=== PATIENT | female | born 1940 | race Two or more races ===

== ENCOUNTER 2016-07-15 12:56 | Inpatient (IN) | payer MEDICARE, OTHER ==
[~2016-07-15] VITALS: Ht 149.9 cm; Wt 57.9 kg
[2016-07-15] VITALS (17 sets, daily range): BP systolic 80–120; BP diastolic 39–70
[2016-07-15] MEDS: SODIUM CHLORIDE 0.9% 1,000 ML IV SCH ×3 (01:00→20:36)
[~2016-07-15 12:56] MED LIST: CLOP75TA28 PO; DOPamine 1600MCG/ML 400MG/250ML PREMIX BAG IV ONE; GLY5T PO; LOSA25TA9 PO; METF-489 PO; PANT40T PO; SIMV80TA73 PO; SODIUM BICARBONATE 8.4% INJ 50ML SYRINGE IV ONE; TIMO0.5S3 EACHEYE; [UNRECOGNIZED DRUG - CODE] XX
[2016-07-15] MEDS ORDERED: DOPamine 1600MCG/ML 250 ML IV ONE (13:15)
[2016-07-15] MEDS ORDERED: SODIUM BICARBONATE 8.4 % INJ 50ML VIAL IV ONE ×3 (13:15→14:30)
[2016-07-15] MEDS ORDERED: SODIUM BICARBONATE 8.4% INJ 50ML SYRINGE ONE (13:17)
[2016-07-15] MEDS ORDERED: NOREPINEPHRINE BITARTRATE 250 ML IV ONE (13:32)
[2016-07-15 13:37] LABS: Basophils # (auto) 0 uL; Basophils % (auto) 0.4 % (0.0-2.0); DEFINITIVE VIEW TRANSMISSION; Eosinophils # (auto) 0.1 uL; Eosinophils % (auto) 0.9 % (0.0-7.0); Hematocrit 24.6 % (36.0-46.0); Lymphocytes # (auto) 2.5 uL; Lymphocytes % (auto) 35.5 % (10.0-50.0); Mean Corpuscular Hemoglobin 23.8 pg (28.0-32.0); Mean Corpuscular Volume 84.9 fL (80.0-100.0); Mean Platelet Volume 8.9 fL (7.4-10.4); Monocytes # (auto) 0.5 uL; Monocytes % (auto) 7.1 % (0.0-12.0); Neutrophils # (auto) 3.9 uL; Neutrophils % (auto) 56.1 % (37.0-80.0); Nucleated Red Blood Cells % 2.4 %; Platelet Count (auto) 328 10^3/uL (140-450); SUSPECT VIEW TRANSMISSION; White Blood Cell 6.9 10^3/uL (4.4-10.8)
[2016-07-15] MEDS: NOREPINEPHRINE BITARTRATE 250 ML IV SCH (13:40)
[2016-07-15] MEDS: DOPamine 1600MCG/ML 250 ML IV SCH (13:40)
[2016-07-15 13:58] LABS: Hemoglobin 6.9 g/dL (12.2-16.2); Red Cell Distribution Width 20.9 % (11.6-16.0)
[2016-07-15] MEDS ORDERED: SODIUM CHLORIDE 0.9% 1,000 ML IV ONE (14:00)
[2016-07-15 14:08] LABS: Albumin 2.4 g/dL (3.4-5.0); BUN/Creatinine Ratio 13.8; Bilirubin, Total 0.3 mg/dL (0.2-1.0); Calcium 8.1 mg/dL (8.5-10.1); Potassium 5.3 mmol/L (3.5-5.1); Total Protein 6.5 g/dL (6.4-8.2)
[2016-07-15 14:09] LABS: INR 1.06 (0.9-1.15); Partial Thromboplastin Time 44.3 sec (22.64-33.71); Prothrombin Time 11.5 sec (9.37-12.3)
[2016-07-15] MEDS ORDERED: InsuLIN R (HUMAN) 100 UNITS in SODIUM CHL 0.9% 99 ML IV SCH ×2 (14:17→16:30)
[2016-07-15] MEDS ORDERED: DEXTROSE (50%) 50ML SYRG IV PRN ×2 (14:30→16:15)
[2016-07-15] MEDS ORDERED: InsuLIN REG 1unit/0.01ml Soln (100units/ml) IV ONE (14:30)
[2016-07-15 14:56] LABS: Urine Bilirubin Negative (Negative); Urine Blood 1+ /uL (Negative); Urine Color Straw (Yellow); Urine Glucose 4+ mg/dL (Normal); Urine Ketone Negative (Negative); Urine Nitrite Negative (Negative); Urine RBC 3 /hpf (0 - 4); Urine Squamous Epithelial Cell FEW /hpf (<5); Urine Urobilinogen Normal (Negative); Urine pH 6.5 (5.0-8.0)
[2016-07-15] MEDS ORDERED: DOPamine 1600MCG/ML 250 ML IV SCH (15:01)
[2016-07-15] MEDS: ACCU-CHEK COMFORT CURVE STRIP VI SCH ×9 (15:11→23:00)
[2016-07-15] MEDS ORDERED: cefTRIAXone 1GM/50ML D5W 50 ML IV ONE ×2 (15:45→16:30)
[2016-07-15] MEDS ORDERED: LORazepam 2MG/ML-1ML VIAL IV PRN (16:15)
[2016-07-15] MEDS ORDERED: NITROGLYCERIN 0.4 MG SL TAB SL PRN (16:15)
[2016-07-15] MEDS ORDERED: PROCHLORPERAZINE EDISYLATE 5 MG/ML 2ML VIAL IV PRN (16:15)
[2016-07-15] MEDS ORDERED: ALBUTEROL SULF 2.5 MG/0.5ML(0.5%) NEB SOLN NEB PRN (16:15)
[2016-07-15] MEDS ORDERED: HYDROmorphone HCL 2 MG/ML VL IV PRN (16:15)
[2016-07-15] MEDS ORDERED: PANTOPRAZOLE SODIUM 40 MG/10 ML VIAL IV ONE (16:30)
[2016-07-15 16:32] LABS: Lactic Acid w/Reflex 13.9 mmol/L (0.4-2.0)
[2016-07-15 16:34] LABS: REFLEX LACTIC ACID YES OR NO YES
[2016-07-15 17:32] LABS: BUN/Creatinine Ratio 16.4; Calcium 7.8 mg/dL (8.5-10.1); Potassium 4.7 mmol/L (3.5-5.1)
[2016-07-15 17:43] LABS: Anisocytosis Moderate; Hypochromia Moderate; Ovalocytes FEW; Platelet Estimate Adequate
[2016-07-15 17:44] LABS: Tear Drop Cells FEW
[2016-07-15 17:46] LABS: Burr Cells FEW; Large Platelets FEW
[2016-07-15] MEDS ORDERED: SODIUM CHLORIDE 0.9% 1,000 ML IV SCH (20:09)
[2016-07-16] VITALS (125 sets, daily range): BP systolic 73–150; BP diastolic 29–81
[2016-07-16] MEDS: ALBUTEROL SULF 2.5 MG/0.5ML(0.5%) NEB SOLN NEB SCH ×4 (00:40→18:39)
[2016-07-16] MEDS: IPRATROPIUM BROM 0.5 MG/2.5ML INH SOL NEB SCH ×4 (00:40→18:39)
[2016-07-16 00:57] LABS: Hematocrit 40.9 % (36.0-46.0); Hemoglobin 12.6 g/dL (12.2-16.2)
[2016-07-16 01:12] LABS: Partial Thromboplastin Time 25.6 sec (22.64-33.71)
[2016-07-16] MEDS: ACCU-CHEK COMFORT CURVE STRIP VI SCH ×15 (01:17→22:12)
[2016-07-16 01:20] LABS: INR 1.21 (0.9-1.15); Prothrombin Time 13.1 sec (9.37-12.3)
[2016-07-16 01:36] LABS: Albumin 2.6 g/dL (3.4-5.0); BUN/Creatinine Ratio 19.8; Bilirubin, Total 0.5 mg/dL (0.2-1.0); Calcium 7.3 mg/dL (8.5-10.1); Magnesium 2.4 mg/dL (1.6-2.6); Total Protein 7.1 g/dL (6.4-8.2)
[2016-07-16 02:02] LABS: Phosphorus 0.7 mg/dL (2.5-4.90); Potassium 2.7 mmol/L (3.5-5.1)
[2016-07-16 02:45] LABS: Hemoglobin 13.2 g/dL (12.2-16.2)
[2016-07-16 02:52] LABS: BUN/Creatinine Ratio 19.1; Calcium 7.5 mg/dL (8.5-10.1); Magnesium 2.3 mg/dL (1.6-2.6)
[2016-07-16 02:53] LABS: Phosphorus 0.6 mg/dL (2.5-4.90)
[2016-07-16 02:54] LABS: Potassium 2.4 mmol/L (3.5-5.1)
[2016-07-16] MEDS: NOREPINEPHRINE BITARTRATE 250 ML IV SCH ×4 (03:16→19:20)
[2016-07-16] MEDS ORDERED: SODIUM PHOSPHATES IV ONE (04:30)
[2016-07-16] MEDS ORDERED: SODIUM CHL 0.9% IV ONE (04:30)
[2016-07-16] MEDS: POTASSIUM CHL 20MEQ/100ML 100 ML IV SCH ×3 (04:40→08:31)
[2016-07-16] MEDS: SODIUM CHLORIDE 0.9% 1,000 ML IV SCH (04:49)
[2016-07-16 06:34] LABS: Partial Thromboplastin Time 25.2 sec (22.64-33.71)
[2016-07-16 06:41] LABS: INR 1.26 (0.9-1.15); Prothrombin Time 13.6 sec (9.37-12.3)
[2016-07-16 06:45] LABS: DEFINITIVE VIEW TRANSMISSION; Hematocrit 41.5 % (36.0-46.0); Hemoglobin 13.1 g/dL (12.2-16.2); Mean Corpuscular Hemoglobin 25.8 pg (28.0-32.0); Mean Corpuscular Hgb Conc. 31.5 g/dL (32.0-36.0); Mean Corpuscular Volume 81.7 fL (80.0-100.0); Mean Platelet Volume 7.6 fL (7.4-10.4); Platelet Count (auto) 295 10^3/uL (140-450); Red Cell Distribution Width 18.3 % (11.6-16.0); SUSPECT VIEW TRANSMISSION; White Blood Cell 14.9 10^3/uL (4.4-10.8)
[2016-07-16 06:46] LABS: Myelocytes % 0; Promyelocytes % 0; Reactive Lymphocytes 0
[2016-07-16 06:56] LABS: Hypersegmented Neutrophils Present; Metamyelocytes % 1; Platelet Estimate Adequate
[2016-07-16 06:57] LABS: Anisocytosis Moderate
[2016-07-16 06:58] LABS: Albumin 2.5 g/dL (3.4-5.0); BUN/Creatinine Ratio 20.3; Bilirubin, Total 0.5 mg/dL (0.2-1.0); Calcium 7.4 mg/dL (8.5-10.1); Hypochromia Slight; Magnesium 2.2 mg/dL (1.6-2.6); Ovalocytes FEW; Phosphorus 2.4 mg/dL (2.5-4.90); Total Protein 6.8 g/dL (6.4-8.2)
[2016-07-16 07:06] LABS: Potassium 2.8 mmol/L (3.5-5.1)
[2016-07-16] MEDS: cefTRIAXone 1GM/50ML D5W 50 ML IV SCH (09:51)
[2016-07-16] MEDS: PANTOPRAZOLE SODIUM 40 MG/10 ML VIAL IV SCH (09:51)
[2016-07-16] MEDS: AZITHROMYCIN 500MG/D5W 250ML 250 ML IV SCH (10:32)
[2016-07-16] MEDS ORDERED: ISOS1TAB37 PO (10:59)
[2016-07-16] MEDS ORDERED: TIMO0.5S3 EACHEYE (10:59)
[2016-07-16] MEDS ORDERED: FELO5TAB PO (10:59)
[2016-07-16] MEDS ORDERED: HYDR2TAB27 PO (10:59)
[2016-07-16] MEDS ORDERED: PERCOT PO (10:59)
[2016-07-16] MEDS ORDERED: LEVOPOW43 XX (10:59)
[2016-07-16] MEDS ORDERED: ONDA4TAB5 PO (10:59)
[2016-07-16] MEDS ORDERED: DOCU-94 PO (10:59)
[2016-07-16] MEDS ORDERED: PRO10T PO (10:59)
[2016-07-16] MEDS ORDERED: METF-489 PO ×2 (10:59)
[2016-07-16] MEDS ORDERED: NITR0.4S29 SL (10:59)
[2016-07-16] MEDS ORDERED: GLIM2TAB33 PO (10:59)
[2016-07-16] MEDS ORDERED: LOPE2TAB73 PO (10:59)
[2016-07-16] MEDS: PROPOFOL 100 ML IV SCH (11:01)
[2016-07-16] MEDS: DOPamine 1600MCG/ML 250 ML IV SCH (11:02)
[2016-07-16] MEDS: MIDAZOLAM DRIP 100 mg/100mL NS 100 ML IV SCH (11:02)
[2016-07-16] MEDS ORDERED: DEXTROSE (50%) 50ML SYRG IV PRN (12:00)
[2016-07-16] MEDS ORDERED: INSULIN DETEMIR(LEVEMIR) 1unit/0.01ml Soln (100units/ml) SC ONE (12:00)
[2016-07-16] MEDS: ENOXAPARIN SOD 30 MG/0.3 ML SYRINGE SC SCH (12:24)
[2016-07-16 13:09] LABS: Albumin 2.2 g/dL (3.4-5.0); Bilirubin, Total 0.4 mg/dL (0.2-1.0); Calcium 7.1 mg/dL (8.5-10.1); Total Protein 6.5 g/dL (6.4-8.2)
[2016-07-16 13:13] LABS: Potassium 2.9 mmol/L (3.5-5.1)
[2016-07-16] MEDS ORDERED: POTASSIUM CHLORIDE 40 MEQ, LIDOCAINE 1% (LOCAL ANESTH.) 4 ML in SODIUM CHL 0.9% 250 ML IV ONE (13:30)
[2016-07-16] MEDS ORDERED: POTASSIUM CHL 10% (20 MEQ/15ML) ORAL SOLN GT ONE ×2 (13:30→15:00)
[2016-07-16] MEDS: FREE WATER GT SCH ×3 (13:36→22:12)
[2016-07-16] MEDS: InsuLIN REG 1unit/0.01ml Soln (100units/ml) SC SCH ×3 (14:03→22:12)
[2016-07-16 20:49] LABS: BUN/Creatinine Ratio 19.3; Calcium 7.4 mg/dL (8.5-10.1); Potassium 3.5 mmol/L (3.5-5.1)
[2016-07-16] MEDS ORDERED: POTASSIUM CHL 10% (20 MEQ/15ML) ORAL SOLN GT SCH (22:00)
[2016-07-16] MEDS: SOD CHL 0.45% 1,000 ML IV SCH (22:49)
[2016-07-16] MEDS ORDERED: VASOPRESSIN 20 UNIT/ML ONE (22:50)
[2016-07-16] MEDS: VASOPRESSIN 50 UNITS in SODIUM CHL 0.9% 247.5 ML IV SCH (23:07)
[2016-07-17] VITALS (103 sets, daily range): BP systolic 69–148; BP diastolic 42–80
[2016-07-17] MEDS: IPRATROPIUM BROM 0.5 MG/2.5ML INH SOL NEB SCH ×4 (00:04→19:23)
[2016-07-17] MEDS: ALBUTEROL SULF 2.5 MG/0.5ML(0.5%) NEB SOLN NEB SCH ×4 (00:04→19:23)
[2016-07-17] MEDS: MIDAZOLAM DRIP 100 mg/100mL NS 100 ML IV SCH (00:08)
[2016-07-17] MEDS: PROPOFOL 100 ML IV SCH (00:08)
[2016-07-17 00:58] LABS: Albumin 2.1 g/dL (3.4-5.0); Calcium 6.8 mg/dL (8.5-10.1); Potassium 4.3 mmol/L (3.5-5.1)
[2016-07-17 01:00] LABS: BUN/Creatinine Ratio 17.9
[2016-07-17 01:03] LABS: Bilirubin, Total 0.3 mg/dL (0.2-1.0)
[2016-07-17] MEDS: FREE WATER GT SCH ×6 (02:00→21:52)
[2016-07-17] MEDS: InsuLIN REG 1unit/0.01ml Soln (100units/ml) SC SCH ×6 (02:00→21:53)
[2016-07-17] MEDS: ACCU-CHEK COMFORT CURVE STRIP VI SCH ×6 (02:03→21:52)
[2016-07-17] MEDS: SOD CHL 0.45% 1,000 ML IV SCH (04:00)
[2016-07-17] MEDS: NOREPINEPHRINE BITARTRATE 250 ML IV SCH ×6 (04:51→23:33)
[2016-07-17] MEDS: DOPamine 1600MCG/ML 250 ML IV SCH (05:16)
[2016-07-17 06:19] LABS: DEFINITIVE VIEW TRANSMISSION; Hemoglobin 11.5 g/dL (12.2-16.2); Mean Corpuscular Hemoglobin 25.8 pg (28.0-32.0); Mean Corpuscular Hgb Conc. 31.1 g/dL (32.0-36.0); Mean Platelet Volume 8.4 fL (7.4-10.4); Platelet Count (auto) 194 10^3/uL (140-450); Red Cell Distribution Width 19.4 % (11.6-16.0); SUSPECT VIEW TRANSMISSION
[2016-07-17 06:38] LABS: Metamyelocytes % 0; Myelocytes % 0; Promyelocytes % 0; Reactive Lymphocytes 0
[2016-07-17 06:43] LABS: BUN/Creatinine Ratio 19.1; Bilirubin, Total 0.3 mg/dL (0.2-1.0); Calcium 6.5 mg/dL (8.5-10.1); Magnesium 1.8 mg/dL (1.6-2.6); Potassium 4.7 mmol/L (3.5-5.1); Total Protein 6.1 g/dL (6.4-8.2)
[2016-07-17 06:48] LABS: Anisocytosis Moderate; Hypersegmented Neutrophils Present; Platelet Estimate Adequate
[2016-07-17 06:49] LABS: Hypochromia Slight; Ovalocytes FEW
[2016-07-17] MEDS ORDERED: SODIUM BICARBONATE 8.4 % INJ 50ML VIAL IV ONE (09:00)
[2016-07-17] MEDS: cefTRIAXone 1GM/50ML D5W 50 ML IV SCH (09:08)
[2016-07-17] MEDS: PANTOPRAZOLE SODIUM 40 MG/10 ML VIAL IV SCH (10:00)
[2016-07-17] MEDS: AZITHROMYCIN 500MG/D5W 250ML 250 ML IV SCH (10:06)
[2016-07-17] MEDS: ENOXAPARIN SOD 30 MG/0.3 ML SYRINGE SC SCH (10:10)
[2016-07-17] MEDS: ALBUMIN 25% 100 ML IV SCH ×2 (11:46→12:45)
[2016-07-17] MEDS ORDERED: PHENYLEPHRINE IV 250 ML IV ONE (12:03)
[2016-07-17] MEDS: PHENYLEPHRINE INJ 20 MG in SODIUM CHL 0.9% 250 ML IV SCH ×2 (12:21→20:41)
[2016-07-17] MEDS ORDERED: LEVOTHYROXINE SODIUM 100 MCG/5 ML INJ IV ONE (12:30)
[2016-07-17] MEDS ORDERED: MAGNESIUM SULFATE 1GM/100ML 100 ML IV ONE (12:30)
[2016-07-17] MEDS: METOCLOPRAMIDE HCL 5MG/ml INJ 2ml VIAL IV SCH ×2 (15:32→21:52)
[2016-07-17] MEDS: VASOPRESSIN 50 UNITS in SODIUM CHL 0.9% 247.5 ML IV SCH (17:23)
[2016-07-18] VITALS (105 sets, daily range): BP systolic 67–157; BP diastolic 31–70
[2016-07-18] MEDS: PROPOFOL 100 ML IV SCH ×2 (00:08→23:55)
[2016-07-18] MEDS: MIDAZOLAM DRIP 100 mg/100mL NS 100 ML IV SCH ×2 (00:08→23:55)
[2016-07-18] MEDS: DOPamine 1600MCG/ML 250 ML IV SCH ×2 (00:19→19:22)
[2016-07-18] MEDS: ALBUTEROL SULF 2.5 MG/0.5ML(0.5%) NEB SOLN NEB SCH ×4 (01:05→18:27)
[2016-07-18] MEDS: IPRATROPIUM BROM 0.5 MG/2.5ML INH SOL NEB SCH ×4 (01:05→18:27)
[2016-07-18] MEDS: FREE WATER GT SCH ×7 (01:57→22:06)
[2016-07-18] MEDS: ACCU-CHEK COMFORT CURVE STRIP VI SCH ×6 (01:57→22:06)
[2016-07-18] MEDS: InsuLIN REG 1unit/0.01ml Soln (100units/ml) SC SCH ×6 (01:57→22:06)
[2016-07-18 03:59] LABS: Basophils # (auto) 0 uL; DEFINITIVE VIEW TRANSMISSION; Eosinophils # (auto) 0.1 uL; Hematocrit 35.3 % (36.0-46.0); Hemoglobin 11.1 g/dL (12.2-16.2); Lymphocytes # (auto) 0.3 uL; Lymphocytes % (auto) 2.8 % (10.0-50.0); Mean Corpuscular Hemoglobin 26.2 pg (28.0-32.0); Mean Corpuscular Hgb Conc. 31.5 g/dL (32.0-36.0); Mean Corpuscular Volume 83.3 fL (80.0-100.0); Mean Platelet Volume 8.6 fL (7.4-10.4); Monocytes # (auto) 0.4 uL; Monocytes % (auto) 3.6 % (0.0-12.0); Neutrophils # (auto) 11.5 uL; Neutrophils % (auto) 92.6 % (37.0-80.0); Platelet Count (auto) 133 10^3/uL (140-450); Red Cell Distribution Width 19.6 % (11.6-16.0); SUSPECT VIEW TRANSMISSION; White Blood Cell 12.4 10^3/uL (4.4-10.8)
[2016-07-18 04:35] LABS: Albumin 2.7 g/dL (3.4-5.0); BUN/Creatinine Ratio 14.9; Total Protein 6.4 g/dL (6.4-8.2)
[2016-07-18] MEDS: PHENYLEPHRINE INJ 20 MG in SODIUM CHL 0.9% 250 ML IV SCH ×3 (04:49→21:41)
[2016-07-18] MEDS: NOREPINEPHRINE BITARTRATE 250 ML IV SCH ×5 (04:49→23:00)
[2016-07-18 05:16] LABS: Platelet Estimate Decreased
[2016-07-18 05:32] LABS: Anisocytosis Slight
[2016-07-18 05:33] LABS: Ovalocytes FEW
[2016-07-18 05:34] LABS: Polychromasia Slight
[2016-07-18] MEDS: METOCLOPRAMIDE HCL 5MG/ml INJ 2ml VIAL IV SCH ×3 (05:56→22:06)
[2016-07-18] MEDS: cefTRIAXone 1GM/50ML D5W 50 ML IV SCH (09:10)
[2016-07-18] MEDS: PANTOPRAZOLE SODIUM 40 MG/10 ML VIAL IV SCH (10:21)
[2016-07-18] MEDS: ENOXAPARIN SOD 30 MG/0.3 ML SYRINGE SC SCH (10:21)
[2016-07-18] MEDS: LEVOTHYROXINE SODIUM 100 MCG/5 ML INJ IV SCH (10:21)
[2016-07-18] MEDS: SOD CHL 0.45% 1,000 ML IV SCH (13:29)
[2016-07-18] MEDS ORDERED: ACETAMINOPHEN 120 MG RECT SUPP PR PRN (15:00)
[2016-07-18] MEDS: VASOPRESSIN 50 UNITS in SODIUM CHL 0.9% 247.5 ML IV SCH (22:45)
[2016-07-19] VITALS (56 sets, daily range): BP systolic 0–145; BP diastolic 0–72
[2016-07-19] MEDS: ALBUTEROL SULF 2.5 MG/0.5ML(0.5%) NEB SOLN NEB SCH ×2 (00:20→06:15)
[2016-07-19] MEDS: IPRATROPIUM BROM 0.5 MG/2.5ML INH SOL NEB SCH ×2 (00:20→06:16)
[2016-07-19] MEDS: FREE WATER GT SCH ×3 (02:02→10:00)
[2016-07-19] MEDS: ACCU-CHEK COMFORT CURVE STRIP VI SCH ×3 (02:03→10:11)
[2016-07-19] MEDS: InsuLIN REG 1unit/0.01ml Soln (100units/ml) SC SCH ×3 (02:03→10:13)
[2016-07-19] MEDS: NOREPINEPHRINE BITARTRATE 250 ML IV SCH ×2 (03:00→07:37)
[2016-07-19] MEDS: PHENYLEPHRINE INJ 20 MG in SODIUM CHL 0.9% 250 ML IV SCH ×2 (05:58→09:01)
[2016-07-19] MEDS: METOCLOPRAMIDE HCL 5MG/ml INJ 2ml VIAL IV SCH (05:58)
[2016-07-19] MEDS: SOD CHL 0.45% 1,000 ML IV SCH (08:05)
[2016-07-19] MEDS: cefTRIAXone 1GM/50ML D5W 50 ML IV SCH (09:00)
[2016-07-19 09:06] LABS: Basophils # (auto) 0 uL; DEFINITIVE VIEW TRANSMISSION; Eosinophils # (auto) 0.3 uL; Eosinophils % (auto) 3.4 % (0.0-7.0); Hematocrit 36.9 % (36.0-46.0); Hemoglobin 11.6 g/dL (12.2-16.2); Lymphocytes # (auto) 0.4 uL; Lymphocytes % (auto) 4.4 % (10.0-50.0); Mean Corpuscular Hemoglobin 25.8 pg (28.0-32.0); Mean Corpuscular Hgb Conc. 31.4 g/dL (32.0-36.0); Mean Corpuscular Volume 82.1 fL (80.0-100.0); Mean Platelet Volume 9.1 fL (7.4-10.4); Monocytes # (auto) 0.4 uL; Monocytes % (auto) 4.9 % (0.0-12.0); Neutrophils # (auto) 7.7 uL; Neutrophils % (auto) 87.3 % (37.0-80.0); Platelet Count (auto) 111 10^3/uL (140-450); Red Cell Distribution Width 19.4 % (11.6-16.0); SUSPECT VIEW TRANSMISSION; White Blood Cell 8.8 10^3/uL (4.4-10.8)
[2016-07-19 09:27] LABS: Albumin 2.1 g/dL (3.4-5.0); BUN/Creatinine Ratio 10.3; Calcium 8.4 mg/dL (8.5-10.1); Potassium 3.1 mmol/L (3.5-5.1)
[2016-07-19 09:30] LABS: Bilirubin, Total 1.1 mg/dL (0.2-1.0); Total Protein 6.2 g/dL (6.4-8.2)
[2016-07-19 09:47] LABS: Anisocytosis Slight; Platelet Estimate Decreased
[2016-07-19 09:48] LABS: Hypochromia Slight
[2016-07-19] MEDS: PANTOPRAZOLE SODIUM 40 MG/10 ML VIAL IV SCH ×2 (10:00→10:10)
[2016-07-19] MEDS: ENOXAPARIN SOD 30 MG/0.3 ML SYRINGE SC SCH ×2 (10:00→10:11)
[2016-07-19] MEDS: LEVOTHYROXINE SODIUM 100 MCG/5 ML INJ IV SCH ×2 (10:00→10:11)
[2016-07-19] MEDS ORDERED: HYDROmorphone HCL 2 MG/ML VL IV PRN (10:30)
[2016-07-19] MEDS ORDERED: HYDROmorphone HCL 2 MG/ML VL IV ONE (10:30)
[2016-07-19] MEDS ORDERED: LORazepam 2MG/ML-1ML VIAL IV PRN (10:30)
== END 2016-07-19 13:25 | disposition expired | DRG 208 ==
LOC: EDBD 12:56 → EDUNIT# 12:56 → ER 12:56 → TELE 12:57 → ICU WEST 21:03 → TELE-WESTW 07-19 11:25 → WEST WING 07-19 11:38
PROVIDERS: ADMIT Internal Medicine; ATTEND Internal Medicine
PROC: 5A1945Z Respiratory Ventilation, 24-96 Consecutive Hours (ICD-10-PCS; principal; 2016-07-15)
PROC: 0BH17EZ Insertion of Endotracheal Airway into Trachea, Via Natural or Artificial Opening (ICD-10-PCS; 2016-07-15)
PROC: 30233N1 Transfusion of Nonautologous Red Blood Cells into Peripheral Vein, Percutaneous Approach (ICD-10-PCS; 2016-07-15)
DX: J96.02 Acute respiratory failure with hypercapnia (principal); E13.10 Other specified diabetes mellitus with ketoacidosis without coma; I50.43 Acute on chronic combined systolic (congestive) and diastolic (congestive) heart failure; J18.9 Pneumonia, unspecified organism; N17.0 Acute kidney failure with tubular necrosis; I26.99 Other pulmonary embolism without acute cor pulmonale; K72.00 Acute and subacute hepatic failure without coma; I13.2 Hypertensive heart and chronic kidney disease with heart failure and with stage 5 chronic kidney disease, or end stage renal disease; N39.0 Urinary tract infection, site not specified; E87.0 Hyperosmolality and hypernatremia; G93.1 Anoxic brain damage, not elsewhere classified; I13.0 Hypertensive heart and chronic kidney disease with heart failure and stage 1 through stage 4 chronic kidney disease, or unspecified chronic kidney disease; K56.7 Ileus, unspecified; Z51.5 Encounter for palliative care; Z66 Do not resuscitate; I46.9 Cardiac arrest, cause unspecified; E87.6 Hypokalemia; D63.8 Anemia in other chronic diseases classified elsewhere; E03.9 Hypothyroidism, unspecified; N18.3 Chronic kidney disease, stage 3 (moderate); K21.9 Gastro-esophageal reflux disease without esophagitis; E78.5 Hyperlipidemia, unspecified; E83.41 Hypermagnesemia; F17.200 Nicotine dependence, unspecified, uncomplicated; H40.9 Unspecified glaucoma; I08.0 Rheumatic disorders of both mitral and aortic valves; I25.10 Atherosclerotic heart disease of native coronary artery without angina pectoris; I34.0 Nonrheumatic mitral (valve) insufficiency; I35.0 Nonrheumatic aortic (valve) stenosis; I35.1 Nonrheumatic aortic (valve) insufficiency; I25.2 Old myocardial infarction; Z80.0 Family history of malignant neoplasm of digestive organs; Z68.25 Body mass index [BMI] 25.0-25.9, adult; Z85.038 Personal history of other malignant neoplasm of large intestine; Z93.3 Colostomy status; Z88.6 Allergy status to analgesic agent; Z88.5 Allergy status to narcotic agent; Z88.0 Allergy status to penicillin
CPT/HCPCS: 36415; 36600; 51702; 70450; 71010; 80048; 80053; 80061; 80307; 81001; 82150; 82378; 82550; 82805; 82962; 83036; 83605; 83690; 83735; 84100; 84439; 84443; 84481; 84484; 85007; 85014; 85018; 85025; 85027; 85045; 85379; 85610; 85652; 85730; 86141; 86850; 86900; 86901; 86920; 87040; 87070; 87081; 87086; 87205; 92950; 93005; 93306; 94002; 94003; 94640; 95819; 96361; 96365; 96367; 96375; 99291; C9113; J0696; J1815; J2001; J3480; J3490